=== PATIENT | male | born 1950 | race Caucasian/White ===

== ENCOUNTER 2017-05-28 13:33 | Emergency (ER) | payer MEDICARE, OTHER ==
[~2017-05-28] VITALS: Ht 162.6 cm; Wt 54.0 kg
[2017-05-28 13:47] VITALS: Ht 162.6 cm; Wt 54.0 kg
[2017-05-28] MEDS ORDERED: SOD CHLORIDE 0.9% 1,000 ML IV STA (15:52)
[2017-05-28] MEDS ORDERED: BELLADONNA/PHENOBARBITAL TAB PO STA (15:52)
[2017-05-28] MEDS ORDERED: LIDOCAINE/MYLANTA 40 ML BTL PO STA (15:52)
[2017-05-28 16:28] LABS: BASOPHIL # 0.1 10^3/ul (0.0-0.1); BASOPHILS % 0.4 % (0.0-2.0); EOSINOPHILS # 0.1 10^3/ul (0.0-0.5); EOSINOPHILS % 1.2 % (0.0-7.0); HEMATOCRIT 49.8 % (42.0-52.0); HEMOGLOBIN 16.9 g/dl (14.0-18.0); LYMPHOCYTES # 1.7 10^3/ul (0.8-2.9); LYMPHOCYTES % 14.3 % (15.0-51.0); MEAN CORPUSCULAR HEMOGLOBIN 30.3 pg (29.0-33.0); MEAN CORPUSCULAR HGB CONC 33.9 g/dl (32.0-37.0); MEAN CORPUSCULAR VOLUME 89.2 fl (82.0-101.0); MEAN PLATELET VOLUME 10.5 fl (7.4-10.4); MONOCYTE # 0.7 10^3/ul (0.3-0.9); MONOCYTES % 5.9 % (0.0-11.0); NEUTROPHILS % 77.5 % (39.0-77.0); PLATELET COUNT 378 10^3/UL (140-415); RED BLOOD COUNT 5.58 10^6/ul (4.70-6.10); RED CELL DISTRIBUTION WIDTH 12.2 % (11.5-14.5); WHITE BLOOD COUNT 11.6 10^3/ul (4.8-10.8)
--- NOTE | 2017-05-28 16:33 | RADRPT ---
PROCEDURE: XR Chest. CLINICAL INDICATION: Pain. TECHNIQUE: Single frontal chest x-ray. COMPARISON: None. FINDINGS: The lungs are clear of acute infiltrates, edema, effusions, or masses. The lungs are hyperinflated w ith bullous changes in the left apex.. Calcific atherosclerosis of the aorta is present. The cardio mediastinal silhouette is unremarkable. The osseous structures are intact. IMPRESSION: No acute cardiopulmonary disease. Hyperinflation of lungs with left apical bullous changes consistent with COPD. RPTAT: GG .Sandro Rodgers MD, MD Date Time Electronically viewed and signed by .Sandro Rodgers MD, MD on 05/28/2017 16:33 .L/
[2017-05-28 16:49] LABS: ALANINE AMINOTRANSFERASE 69 IU/L (13-69); ALBUMIN 4.2 g/dl (3.3-4.9); ALBUMIN/GLOBULIN RATIO 1.27; ALKALINE PHOSPHATASE 307 IU/L (42-121); ASPARTATE AMINO TRANSFERASE 36 IU/L (15-46); BILIRUBIN,INDIRECT 0.3 mg/dl (0-1.1); BILIRUBIN,TOTAL 0.3 mg/dl (0.2-1.3); BLOOD UREA NITROGEN 22 mg/dl (7-20); CARBON DIOXIDE 23 mmol/L (21-31); CREATININE 1.25 mg/dl (0.61-1.24); GLUCOSE 140 mg/dl (70-220); POTASSIUM 4.2 mmol/L (3.5-5.1); SODIUM 142 mmol/L (135-144); TOTAL PROTEIN 7.5 g/dl (6.1-8.1)
--- NOTE | 2017-05-28 17:02 | ERD ---
ER Documentation Chief Complaint Date/Time DATE: 05/28/17 TIME: 16:59 Chief Complaint Complains of chest congestion x 3 days HPI 66-year-old man brought in by brother for recent episodes of loose stools 3 days. He has had multiple loose stools no blood or mucus in stools noted. Patient also states he feels congested and has had a cough recently. Brother states he has been confused 1 day but has had no weakness in his arms or legs, no slurred speech. He has had no fevers or chills no chest pain, no complaints of shortness of breath, no vomiting, no headache or blurry vision. Patient denies abdominal pain. ROS All systems reviewed and are negative except as per history of present illness. Medications Home Meds Active Scripts Albuterol Sulfate* (Proair HFA*) 8.5 Gm Hfa.aer.ad, 2 PUFF INH Q6H Y for WHEEZING AND SOB, #1 INHALER Prov:ANDIE COOMBS MD 05/28/17 Hydrochlorothiazide* (Hydrochlorothiazide*) 25 Mg Tab, 25 MG PO BID, #60 TAB Prov:ANDIE COOMBS MD 05/28/17 Cephalexin* (Keflex*) 500 Mg Capsule, 500 MG PO TID for 7 Days, CAP Prov:ANDIE COOMBS MD 05/28/17 Allergies Allergies: Coded Allergies: No Known Drug Allergies (Verified Allergy, Unknown, 05/28/17) PMhx/Soc None History of Surgery: No Anesthesia Reaction: No Hx Neurological Disorder: No Hx Respiratory Disorders: No Hx Cardiac Disorders: No Hx Psychiatric Problems: No Hx Miscellaneous Medical Probl: No Hx Alcohol Use: No Hx Substance Use: No Hx Tobacco Use: Yes FmHx Family History: No diabetes Physical Exam Vitals Vital Signs Date Time Temp Pulse Resp B/P Pulse Ox O2 Delivery O2 Flow Rate FiO2 05/28/17 19:49 98.3 97 18 133/94 100 Nasal Cannula 2.0 05/28/17 17:00 74 22 161/112 100 Nasal Cannula 2.0 05/28/17 13:47 98.3 122 20 118/77 98 Physical Exam GENERAL: Well-developed, appears dehydrated, afebrile HEENT: Dry mucous membranes, pink conjunctiva, no cervical spine tenderness or step-off deformities, no goiter, no jaundice or icterus, extraocular movements intact without pain. No submandibular induration, and no pharyngeal erythema NEURO: Alert and oriented 3, cranial nerves II through XII intact bilaterally, pupils equal round reactive to light, no focal deficits or facial asymmetry, sensation intact distally Strength 5/5 in upper and lower extremities bilaterally CARDIAC: Tachycardic and regular no murmurs rubs or gallops LUNGS: Clear bilaterally no wheezing crackles or stridor ABDOMEN: Soft nontender, no guarding, no rigidity, no rebound, no psoas sign no obturator sign. Normoactive bowel sounds SKIN: Warm and dry to touch, no abrasions, contusions, or hematomas, no lacerations, no ecchymosis, no target lesions, and without ulcers EXTREMITIES: No clubbing cyanosis or edema, calves are bilaterally symmetrical, no Homans sign, no popliteal cord sign. Distal pulses equal and bilateral PSYCH: Normal affect without agitation or irritability Result Diagram: 05/28/17 1615 05/28/17 1615 Results 24 hrs Laboratory Tests Test 05/28/17 16:15 05/28/17 17:15 White Blood Count 11.610^3/ul Red Blood Count 5.5810^6/ul Hemoglobin 16.9g/dl Hematocrit 49.8% Mean Corpuscular Volume 89.2fl Mean Corpuscular Hemoglobin 30.3pg Mean Corpuscular Hemoglobin Concent 33.9g/dl Red Cell Distribution Width 12.2% Platelet Count 13720^3/UL Mean Platelet Volume 10.5fl Neutrophils % 77.5% Lymphocytes % 14.3% Monocytes % 5.9% Eosinophils % 1.2% Basophils % 0.4% Nucleated Red Blood Cells % 0.0/100WBC Neutrophils # 9.010^3/ul Lymphocytes # 1.710^3/ul Monocytes # 0.710^3/ul Eosinophils # 0.110^3/ul Basophils # 0.110^3/ul Nucleated Red Blood Cells # 0.010^3/ul Sodium Level 142mmol/L Potassium Level 4.2mmol/L Chloride Level 79mmol/L Carbon Dioxide Level 23mmol/L Anion Gap 44 Blood Urea Nitrogen 22mg/dl Creatinine 1.25mg/dl Glucose Level 140mg/dl Calcium Level 10.0mg/dl Total Bilirubin 0.3mg/dl Direct Bilirubin 0.00mg/dl Indirect Bilirubin 0.3mg/dl Aspartate Amino Transf (AST/SGOT) 36IU/L Alanine Aminotransferase (ALT/SGPT) 69IU/L Alkaline Phosphatase 307IU/L Troponin I < 0.012ng/ml Total Protein 7.5g/dl Albumin 4.2g/dl Globulin 3.30g/dl Albumin/Globulin Ratio 1.27 Lipase 58U/L Ethyl Alcohol Level < 10.0mg/dl Urine Color SANDEEP Urine Clarity SLIGHTLY CLOUDY Urine pH 5.0 Urine Specific [place] 1.028 Urine Ketones NEGATIVEmg/dL Urine Nitrite NEGATIVEmg/dL Urine Bilirubin NEGATIVEmg/dL Urine Urobilinogen 2+mg/dL Urine Leukocyte Esterase NEGATIVELeu/ul Urine Microscopic RBC 2/HPF Urine Microscopic WBC 11/HPF Urine Mucus MANY/HPF Urine Hemoglobin NEGATIVEmg/dL Urine Glucose NEGATIVEmg/dL Urine Total Protein 1+mg/dl Current Medications Medications (Trade) Dose Ordered Sig/Sravan Route PRN Reason Start Time Stop Time Status Last Admin Dose Admin Sodium Chloride (NS) 1,000 ml @ 2,000 mls/hr Q30M STAT IV 05/28/17 15:52 05/28/17 16:21 DC 05/28/17 16:18 Miscellaneous Medication (Gi Cocktail (2)) 40 ml ONCE STAT PO 05/28/17 15:52 05/28/17 15:55 DC 05/28/17 16:55 [place]onna/ Phenobarbital 2 tab 2 tab ONCE STAT PO 05/28/17 15:52 05/28/17 15:55 DC 05/28/17 16:55 Ceftriaxone Sodium (Rocephin) 50 ml @ 100 mls/hr ONCE ONCE IVPB 05/28/17 18:00 05/28/17 18:29 DC 05/28/17 19:10 Enalaprilat (Vasotec Iv) 1.25 mg ONCE ONCE IV 05/28/17 18:30 05/28/17 18:31 DC 05/28/17 19:10 Hydralazine HCl (Apresoline) 10 mg ONCE ONCE IV 05/28/17 19:00 05/28/17 19:01 DC 05/28/17 19:10 Procedures/[facility] IV line was established patient was placed on radiographer cardiac catheterization rhythm strip revealed a sinus tachycardia at 120 bpm with upright P and T waves. Patient was afebrile. I administered 2 L normal saline intravenously for dehydration and a GI cocktail 30 cc p.o. for recent diarrhea. EKG performed, read by me revealed a sinus tachycardia at 121 bpm, normal axis, narrow QRS complex, no concerning ST elevations or depressions noted. One view chest x-ray performed, read by me reveals bilateral pulmonary hyperinflation consistent with chronic obstructive pulmonary disease, no acute infiltrates, no pneumothorax. CBC was normal, electrolytes revealed dehydration with a BUN/creatinine of 22/ 1.3, liver function tests normal, troponin negative. Urine analysis was positive for infection. I treated him here with ceftriaxone [address] scan of the brain was performed there was no acute bleed mass or shift. Patient's mental status completely improved and his pulse returned to normal at 80 bpm. He is ambulatory without difficulty and his brother who is at the bedside states his mental status is at baseline. Patient suffered from dehydration and a urinary tract infection accounting for his symptoms, he also had severe hypertension which required ED treatment. After initial enalapril I treated him with hydralazine 10 mg IV 1. Critical Care: Time: 38 minutes, this was time separate from other billable procedures. Treatments/Evaluations: Close monitoring and treatment of unstable vital signs, cardiorespiratory, and neurologic status, while maintaining tight balance of fluid, respiratory, and cardiac interventions. I did recommend inpatient management to help control hypertension and administer antibiotics for UTI although patient preferred outpatient management as did his brother. Patient's systolic diastolic pressures fell about 20 points and I will discharge him with a prescription of antihypertensive oral antibiotics. Differential diagnoses considered, included but not limited to acute coronary syndrome, pulmonary embolism, aortic dissection, abdominal aortic aneurysm, sepsis, stroke, meningitis, encephalitis, pneumonia, appendicitis, cholecystitis , bowel obstruction, pyelonephritis, nephrolithiasis, cystitis, as well as metabolic, hematologic, and electrolyte abnormalities. As well as abscess, cellulitis, fractures, and dislocations. Patient feels much better at this time, and vital signs are normal, symptoms have improved. I did give strict instructions to return to the ED if symptoms continue or worsen, patient will otherwise follow-up with primary care physician. Patient understood instructions and agreed to plan. Disclaimer: Inadvertent spelling and grammatical errors are likely due to EHR/ dictation software use and do not reflect on the overall quality of patient care. Also, please note that the electronic time recorded on this note does not necessarily reflect the actual time of the patient encounter. Departure Diagnosis: Primary Impression: Hypertensive emergency Additional Impressions: Acute encephalopathy Dehydration Acute urinary tract infection Condition: Good ANDIE COOMBS MD May 28, 2017 17:02
[2017-05-28 17:11] LABS: TROPONIN-I < 0.012 ng/ml (0.00-0.12)
[2017-05-28 17:19] LABS: ANION GAP 44 (8-16); CHLORIDE 79 mmol/L (97-110)
[2017-05-28 17:58] LABS: ADD UMIC YES; UR ASCORBIC ACID NEGATIVE (NEGATIVE); UR BILIRUBIN (Dip) NEGATIVE (NEGATIVE); UR BLOOD (Dip) NEGATIVE (NEGATIVE); UR CLARITY SLIGHTLY CLOUDY (CLEAR); UR COLOR AMBER (YELLOW); UR GLUCOSE (Dip) NEGATIVE (NEGATIVE); UR KETONES (Dip) NEGATIVE (NEGATIVE); UR LEUKOCYTE ESTERASE (Dip) NEGATIVE Leu/ul (NEGATIVE); UR MUCUS MANY /HPF (NONE SEEN); UR NITRITE (Dip) NEGATIVE (NEGATIVE); UR RBC 2 /HPF (0-5); UR SPECIFIC GRAVITY (Dip) 1.028 (1.003-1.030); UR TOTAL PROTEIN (Dip) 1+ mg/dl (NEGATIVE); UR UROBILINOGEN (Dip) 2+ mg/dL (NEGATIVE)
[2017-05-28] MEDS ORDERED: CEFTRIAXONE 1 GM/50 ML (PMX) 50 ML IVPB ONE (18:00)
--- NOTE | 2017-05-28 18:25 | RADRPT ---
PROCEDURE: CT Brain without. CLINICAL INDICATION: Altered mental status. Concern for bleed. TECHNIQUE: A CT of the brain was performed on multidetector high-resolution CT scanner utilizing a xial sections from the skull base through the vertex without contrast. The scan was reviewed in sof t tissue brain and high frequency resolution bone algorithm windows. Images were reviewed on a high -resolution PACS workstation. One or more the following does reduction techniques were utilized: Aut omated exposure control, adjustment of the mA/ or kV according to patient's size, or use of iterativ e reconstruction technique. The exam CTDI = 45.01 mGy and the DLP = 630.2 mGy-cm. COMPARISON: None available. FINDINGS: The ventricles and sulci are mildly prominent indicative of volume loss. There is mild cerebellar vo lume loss. There is no intracranial hemorrhage, mass effect or midline shift. No abnormal intra-ax ial or extra-axial fluid collections are seen. The rivera/white matter differentiation is preserved. There are moderate scattered foci of hypoattenuation in the white matter, which are nonspecific in e tiology but likely reflect chronic small vessel ischemic changes. Small old lacunar infarct is note d in the left lentiform nucleus/internal capsule. There are moderate intracranial vascular calcific ations consistent with atherosclerosis. The visualized paranasal sinuses demonstrate partial opacifi cation of the left sphenoid sinus and posterior right ethmoid air cells with debris within the left sphenoid sinus. The mastoid air cells are essentially clear. IMPRESSION: 1. No acute intracranial hemorrhage, transcortical infarction or mass effect. 2. Moderate intracranial atherosclerosis and chronic small vessel ischemic changes. 3. Small old lacunar infarct is noted in the left lentiform nucleus/internal capsule. 4. Mild generalized cerebral and cerebellar volume loss. RPTAT: HH .Cain Orellana MD, MD Date Time Electronically viewed and signed by .Cain Orellana MD, MD on 05/28/2017 18:25 .N/
[2017-05-28] MEDS ORDERED: ENALAPRILAT 1.25 MG INJ IV ONE (18:30)
[2017-05-28] MEDS ORDERED: HYD25 PO (18:51)
[2017-05-28] MEDS ORDERED: CEPH-443 PO (18:51)
[2017-05-28] MEDS ORDERED: ALBU8.5H3 INH (18:51)
[2017-05-28] MEDS ORDERED: hydrALAzine 20 MG INJ IV ONE (19:00)
[2017-05-28 19:49] VITALS: BP 133/94; PULSE 97; RESP 18; TEMP 98.3
== END 2017-05-28 19:50 | disposition home or self-care (01) ==
LOC: E/R 13:33
DX: I16.1 Hypertensive emergency (principal); G93.40 Encephalopathy, unspecified; E86.0 Dehydration; N39.0 Urinary tract infection, site not specified; R07.9 Chest pain, unspecified; R51 Headache; Z87.891 Personal history of nicotine dependence
CPT/HCPCS: 36415; 70450; 71010; 80053; 80306; 81001; 83690; 84484; 85025; 96374; 96375; 99285; J0360; J0696; J7030

== ENCOUNTER 2018-05-17 10:25 | Emergency (ER) | END 2018-05-17 13:10 | disposition home or self-care (01) ==